=== PATIENT | female | born 1990 | race Caucasian/White ===

== ENCOUNTER 2017-12-15 09:42 | Emergency (ER) | payer BC ==
[2017-12-15 09:54] VITALS: BP 114/68
[2017-12-15] MEDS ORDERED: Ondansetron 4 MG Tab.DIS PO ONE (10:18)
--- NOTE | 2017-12-15 10:23 | EDM.PDOC ---
ED HPI GENERAL MEDICAL PROBLEM - General Chief Complaint: Gastrointestinal Problem Stated Complaint: DIARRHEA/VOMITING Time Seen by Provider: 12/15/17 10:05 Source of Information: Reports: Patient History Limitations: Reports: No Limitations - History of Present Illness INITIAL COMMENTS - FREE TEXT/NARRATIVE: 27-year-old female, usually healthy, who was exposed to a gastroenteritis type syndrome a week ago started feeling nauseated last evening and vomited around 11 :30 PM. This was several hours after having a normal meal that included some chicken that may have been undercooked according to the patient. Her last emesis was 5:30 this morning but she continues to have intermittent watery diarrhea. She has had no hematemesis or bloody stool, no fever. Some abdominal cramping. She just feels "weak and dehydrated". Duration: Hour(s): (Symptoms have been ongoing for 11 hours, do seem to be improving) Severity: Moderate Associated Symptoms: Reports: Malaise, Nausea/Vomiting, Weakness. Denies: Chest Pain, Cough, Fever/Chills, Shortness of Breath Abdominal Pain Score (Numeric/FACES): 7 - Related Data Allergies Allergy/AdvReac Type Severity Reaction Status Date / Time Sulfa (Sulfonamide Allergy Hives Verified 12/15/17 09:59 Antibiotics) Home Meds: Home Meds Ibuprofen [Motrin] 600 mg PO TID PRN 01/18/16 [History] FLUoxetine HCl [Fluoxetine HCl] 20 mg PO DAILY 12/15/17 [History] LORazepam 0.5 mg PO DAILY PRN 12/15/17 [History] buPROPion [buPROPion XL] 150 mg PO DAILY 12/15/17 [History] traZODone HCl [Trazodone HCl] 50 mg PO BEDTIME 12/15/17 [History] Past Medical History - Past Health History Medical/Surgical History: Denies Medical/Surgical History Gastrointestinal History: Reports: GERD Psychiatric History: Reports: Anxiety - Infectious Disease History Infectious Disease History: Reports: C-Difficile - Past Surgical History HEENT Surgical History: Reports: Oral Surgery Musculoskeletal Surgical History: Reports: Other (See Below) Other Musculoskeletal Surgeries/Procedures:: Bunion surgery Social & Family History - Tobacco Use Smoking Status *Q: Never Smoker - Caffeine Use Caffeine Use: Reports: Coffee - Recreational Drug Use Recreational Drug Use: No ED ROS GENERAL - Review of Systems Review Of Systems: See Below Constitutional: Reports: Malaise, Weakness. Denies: Fever, Chills HEENT: Reports: No Symptoms Respiratory: Denies: Shortness of Breath Cardiovascular: Denies: Chest Pain GI/Abdominal: Reports: Abdominal Pain, Diarrhea, Nausea, Vomiting : Reports: Other (Decreased urinary frequency, urine is darker) Skin: Reports: No Symptoms Neurological: Reports: No Symptoms. Denies: Headache ED EXAM, GI/ABD - Physical Exam Exam: See Below Exam Limited By: No Limitations General Appearance: Alert, No Apparent Distress Eyes: Bilateral: Normal Appearance (Well-hydrated, no jaundice) Throat/Mouth: Normal Inspection (Normal hydration) Head: Atraumatic Respiratory/Chest: No Respiratory Distress, Lungs Clear Cardiovascular: Regular Rate, Rhythm. No: Tachycardia GI/Abdominal Exam: Tender (She does react diffusely with tenderness to palpation but no focal pain, bowel sounds are hypoactive) Extremities: Normal Inspection Neurological: Alert, Oriented Psychiatric: Normal Affect, Normal Mood Skin Exam: Warm, Dry Comments: She is not concerned about , she is on the Depo-Provera and has not missed a dose Course - Vital Signs Last Recorded V/S: Last Vital Signs Temp 97.3 F 12/15/17 09:58 Pulse 84 12/15/17 09:58 Resp 16 12/15/17 09:58 BP 114/68 12/15/17 09:58 Pulse Ox 97 12/15/17 09:58 - Orders/Labs/Meds Meds: Medications Discontinued Medications Generic Name Dose Route Start Last Admin Trade Name Freq PRN Reason Stop Dose Admin Ondansetron HCl 4 mg 12/15/17 10:18 12/15/17 10:27 Zofran Odt PO 12/15/17 10:19 4 mg ONETIME ONE Administration - Re-Assessments/Exams Free Text/Narrative Re-Assessment/Exam: 12/15/17 10:22 Explained to the patient this is self-limited and will improve. She is not dehydrated, her vitals are normal and her physical exam is normal. She was given a sublingual Zofran, a note was written for her to avoid work tonight, and she will return in 5-7 hours if not improving satisfactorily. Additional Zofran doses were sent with the patient. Departure - Departure Time of Disposition: 10:34 Disposition: Home, Self-Care 01 Condition: Good Clinical Impression: Gastroenteritis - Discharge Information Instructions: Viral Gastroenteritis, Adult, [id number] Referrals: Mae Silverio RN [Primary Care Provider] - Forms: ED Department Discharge Care Plan Goals: Rest today, drink frequent small amounts of fluids and increase diet slowly as tolerated. Stay home from work tonight unless feeling much better, and return anytime if worsening despite taking antinausea medicine as directed.
== END 2017-12-15 10:40 | disposition home or self-care (01) ==
LOC: JP.ED 09:42
DX: K52.9 Noninfective gastroenteritis and colitis, unspecified (principal); Z88.2 Allergy status to sulfonamides; Z79.899 Other long term (current) drug therapy
CPT/HCPCS: 99284; A9270

== ENCOUNTER 2021-02-05 06:36 | Day surgery (SDC) | payer MEDICAID ==
[2021-02-05] MEDS ORDERED: Sodium Chloride 0.9% 1,000 ML IV SCH (07:00)
[2021-02-05] MEDS ORDERED: Midazolam 1 MG/ML 2 ML SDV ONE (07:27)
[2021-02-05] MEDS ORDERED: fentaNYL 100 MCG/2 ML SDV ONE (07:27)
[2021-02-05] MEDS ORDERED: Propofol 200 MG/20 ML SDV ONE (07:27)
[2021-02-05 08:32] VITALS: BP 112/71; PULSE 61
--- NOTE | 2021-02-05 13:06 | OR ---
DATE OF PROCEDURE: 02/05/2021 SURGEON: Gregorio Kerr MD PROCEDURE: Esophagogastroduodenoscopy. FINDINGS: 1. Mild inflammation in the GE junction. 2. No other gross abnormalities. COMPLICATIONS: None. SH[employer] PACKING: None. ANESTHESIA: MAC. PREOPERATIVE DIAGNOSIS: Epigastric pain. POSTOPERATIVE DIAGNOSIS: Epigastric pain. RISKS: Risks, benefits, alternatives, and limitations including, but not limited to, infection, bleeding, perforation, false positives, false negatives were explained to the patient and they wished to proceed. PROCEDURE IN DETAIL: The patient was placed in left lateral decubitus position. The EGD scope was introduced and advanced atraumatically to the second part of the duodenum. No evidence of duodenitis or ulceration. Within the stomach, there was no gastritis. The GE junction showed very mild inflammation, which was biopsied in all 4 quadrants using cold biopsy forceps. The remainder of esophagus was normal. In summary, no significant reflux damage noted. No other pathology such as ulcers, gastritis, or any other concerns. The patient tolerated procedure well. Gregorio Kerr MD /[id number]
== END 2021-02-05 08:39 | disposition home or self-care (01) ==
LOC: JP.SDS 06:36
PROVIDERS: ATTEND Surgery
DX: K21.00 Gastro-esophageal reflux disease with esophagitis, without bleeding (principal); K22.8 Other specified diseases of esophagus; Z88.2 Allergy status to sulfonamides
CPT/HCPCS: 43239; 81025; J2250; J2704; J3010; J7030

== ENCOUNTER 2021-02-09 13:09 | Emergency (ER) | payer MEDICAID ==
[2021-02-09 14:57] VITALS: BP 126/67; PULSE 63
--- NOTE | 2021-02-09 15:23 | EDM.PDOC ---
ED HPI GENERAL MEDICAL PROBLEM - General Chief Complaint: ENT Problem Stated Complaint: LEFT SIDE TOOTH ACHE TOP AND BOTTOM Time Seen by Provider: 02/09/21 15:00 Source of Information: Reports: Patient History Limitations: Reports: No Limitations - History of Present Illness INITIAL COMMENTS - FREE TEXT/NARRATIVE: 30-year-old female with upper and lower dental pain on the left side for the past 48 hours. She does have an appointment with the dentist tomorrow morning. She was last seen 6 months ago, has chronic dental caries and does have a few molars missing on the left side. No significant facial swelling or redness. No fevers or chills. Onset: Gradual Duration: Day(s): (2 to 3 days) Location: Reports: Face (Left maxilla and mandible) Worsens with: Reports: Eating Associated Symptoms: Reports: No Other Symptoms - Related Data Allergies Allergy/AdvReac Type Severity Reaction Status Date / Time Sulfa (Sulfonamide Allergy Hives Verified 02/09/21 15:02 Antibiotics) Home Meds: Home Meds Ibuprofen [Motrin] 600 mg PO TID PRN 01/18/16 [History] ALPRAZolam [Xanax] 1 mg PO BID PRN 07/18/19 [History] Multivitamin [Multi-Day Vitamins] 2 tab PO DAILY 07/18/19 [History] Omeprazole 40 mg PO DAILY 07/18/19 [History] Sertraline [Zoloft] 100 mg PO DAILY 07/18/19 [History] Acetaminophen [Acetaminophen Extra Strength] 1,000 mg PO ASDIRECTED 12/23/20 [History] Zolpidem [Ambien] 5 mg PO BEDTIME PRN 02/05/21 [History] busPIRone [Buspar] 15 mg PO DAILY 02/05/21 [History] Past Medical History - Past Health History Medical/Surgical History: Denies Medical/Surgical History HEENT History: Reports: None Gastrointestinal History: Reports: GERD Musculoskeletal History: Reports: None Psychiatric History: Reports: Anxiety, Panic Attack Endocrine/Metabolic History: Reports: Obesity/BMI 30+ - Infectious Disease History Infectious Disease History: Reports: Chicken Pox, Novel Coronavirus - Past Surgical History Head Surgeries/Procedures: Reports: None HEENT Surgical History: Reports: Oral Surgery GI Surgical History: Reports: EGD Female Surgical History: Reports: LEEP Endocrine Surgical History: Reports: None Musculoskeletal Surgical History: Reports: Other (See Below) Other Musculoskeletal Surgeries/Procedures:: Bunion surgery Dermatological Surgical History: Reports: None Social & Family History - Tobacco Use Tobacco Use Status *Q: Never Tobacco User Second Hand Smoke Exposure: No - Caffeine Use Caffeine Use: Reports: Coffee, Soda - Recreational Drug Use Recreational Drug Use: No ED ROS ENT - Review of Systems Review Of Systems: See Below Constitutional: Denies: Fever, Chills HEENT: Reports: Dental Pain Respiratory: Denies: Shortness of Breath Cardiovascular: Denies: Chest Pain GI/Abdominal: Denies: Abdominal Pain, Nausea, Vomiting Skin: Denies: Erythema Neurological: Denies: Headache Psychiatric: Reports: Anxiety, Other (Struggles with anxiety and insomnia which are both worse with dental pain) ED EXAM, ENT - Physical Exam Exam: See Below Exam Limited By: No Limitations General Appearance: Alert, No Apparent Distress Mouth/Throat: Other (Patient has her second molar missing on the left maxilla and left mandible, several fillings are present in the remaining teeth. The posterior molars are tender to percussion, no significant gingival swelling, no soft tissue swelling of the cheek or neck adenopathy) Head: Atraumatic Respiratory/Chest: No Respiratory Distress, Lungs Clear Neurological: Alert, Oriented Course - Vital Signs Last Recorded V/S: Last Vital Signs Temp 96.8 F L 02/09/21 15:00 Pulse 63 02/09/21 15:00 Resp 12 02/09/21 15:00 BP 126/67 02/09/21 15:00 Pulse Ox 98 02/09/21 15:00 - Re-Assessments/Exams Free Text/Narrative Re-Assessment/Exam: 02/09/21 15:22 This patient likely has bacterial growth underneath the molars on the left side. She is placed on 800 mg of Augmentin suspension, she cannot swallow pills, twice daily for the next 5 days and will recheck tomorrow morning at the dentist as scheduled. Departure - Departure Time of Disposition: 15:29 Disposition: Home, Self-Care 01 Clinical Impression: Dental abscess - Discharge Information Instructions: Dental Abscess, [id number] Referrals: Rosa Morfin PA-C [Primary Care Provider] - Forms: ED Department Discharge Care Plan Goals: Take 2 teaspoons of liquid Augmentin with food twice daily as prescribed, continue with ibuprofen and Tylenol for pain control and if this pain is due to an infection you should improve rapidly. Recheck at the dentist tomorrow as planned. Sepsis Event Note (ED) - Evaluation Sepsis Screening Result: No Definite Risk - Focused Exam Vital Signs: Vital Signs Temp Pulse Resp BP Pulse Ox 02/09/21 15:00 96.8 F L 63 12 126/67 98 02/09/21 14:55 96.8 F L 63 12 126/67 98
== END 2021-02-09 15:31 | disposition home or self-care (01) ==
LOC: JP.ED 13:09
DX: K04.7 Periapical abscess without sinus (principal); K21.9 Gastro-esophageal reflux disease without esophagitis; E66.9 Obesity, unspecified; Z68.31 Body mass index [BMI] 31.0-31.9, adult; Z86.16 Personal history of COVID-19; Z88.2 Allergy status to sulfonamides; Z79.899 Other long term (current) drug therapy
CPT/HCPCS: 99282

== ENCOUNTER 2023-03-24 06:29 | Day surgery (SDC) | payer BC, MEDICAID ==
[~2023-03-24 06:29] MED LIST: Midazolam 1 MG/ML 2 ML SDV ONE; Propofol 200 MG/20 ML SDV ONE; fentaNYL 100 MCG/2 ML SDV ONE
[2023-03-24] MEDS ORDERED: Sodium Chloride 0.9% 1,000 ML IV SCH (07:00)
[2023-03-24 09:07] VITALS: BP 105/42; PULSE 73
== END 2023-03-24 09:20 | disposition home or self-care (01) ==
LOC: JP.SDS 06:29
PROVIDERS: ATTEND Surgery
DX: K22.89 Other specified disease of esophagus (principal); K21.9 Gastro-esophageal reflux disease without esophagitis; E66.9 Obesity, unspecified; Z88.2 Allergy status to sulfonamides
CPT/HCPCS: 43239; 81025; 88305; J2250; J2704; J3010; J7030